=== PATIENT | female | born 1975 ===

== ENCOUNTER → 2020-07-27 16:16 | Outpatient (CLI) | payer OTHER, SELFPAY ==
[2020-07-27 19:15] LABS: Urine N gonorrhoeae NOT DETECTED
[2020-07-27 19:18] LABS: Urine Chlamydia NOT DETECTED
== END ==
PROVIDERS: PCP Family Medicine; Visit Provider Physician Assistant
DX: N89.8 Other specified noninflammatory disorders of vagina (principal)
CPT/HCPCS: 87210; 87491; 87591